=== PATIENT | female | born 1930 | race Hispanic/Latino ===

== ENCOUNTER 2018-06-25 14:10 | Emergency (ER) | payer MEDICARE, OTHER ==
[~2018-06-25] VITALS: Ht 157.5 cm; Wt 62.1 kg
[2018-06-25 15:33] LABS: BASOPHILS % 0.2 % (0.0-1.0); EOSINOPHILS % 0.3 % (0.0-6.0); HEMOGLOBIN 13.5 g/dL (12.0-16.0); LYMPHOCYTES # (AUTO) 1.4 (1.0-3.2); LYMPHOCYTES % 22.1 % (18.0-39.1); MEAN CORPUSCULAR HEMOGLOBIN 32.9 pg (28-32); MEAN CORPUSCULAR HGB CONC 33.8 g/dL (31-35); MEAN CORPUSCULAR VOLUME 97.6 fL (81-99); MONOCYTES # (AUTO) 0.4 (0.2-0.8); MONOCYTES % 6.9 % (4.4-11.3); NEUTROPHILS # (AUTO) 4.3 (2.1-6.9); NEUTROPHILS % 70.3 % (38.7-80.0); PLATELET COUNT 104 x10e3/uL (140-360); RED CELL DISTRIBUTION WIDTH 11.9 % (11.7-14.4)
[2018-06-25 15:40] LABS: INR 0.94; PROTHROMBIN TIME 13.4 seconds (11.9-14.5)
[2018-06-25 15:41] LABS: PARTIAL THROMBOPLASTIN TIME 30.8 seconds (23.8-35.5)
[2018-06-25 15:54] LABS: ALANINE AMINOTRANSFERASE 21 IU/L (0-55); ALBUMIN 4.1 g/dL (3.5-5.0); ALBUMIN/GLOBULIN RATIO 1.3 (0.8-2.0); ALKALINE PHOSPHATASE 59 IU/L (40-150); ANION GAP 16.2 mmol/L (8-16); BLOOD UREA NITROGEN 15 mg/dL (7-26); BUN/CREATININE RATIO 18 (6-25); CALCIUM 9.5 mg/dL (8.4-10.2); CARBON DIOXIDE 24 mmol/L (22-29); CHLORIDE 104 mmol/L (98-107); CREATINE KINASE 67 IU/L (29-168); CREATININE, SERUM 0.83 mg/dL (0.57-1.11); EST GLOMERULAR FILTRATION RATE > 60 ML/MIN (60-); GLUCOSE 97 mg/dL (74-118); MAGNESIUM 2.3 MG/DL (1.3-2.1); POTASSIUM 4.2 mmol/L (3.5-5.1); SODIUM 140 mmol/L (136-145)
[2018-06-25 16:00] LABS: BILIRUBIN,URINE NEGATIVE (NEGATIVE); CLARITY,URINE CLEAR (CLEAR); COLOR,URINE YELLOW (YELLOW); KETONES,URINE NEGATIVE (NEGATIVE); LEUKOCYTE ESTERASE ,URINE 1+ (NEGATIVE); NITRITE,URINE NEGATIVE (NEGATIVE); PROTEIN,URINE DIPSTICK NEGATIVE (NEGATIVE); URINE UROBILINOGEN 0.2 mg/dL (0.2 - 1)
[2018-06-25 16:03] LABS: EPITHELIAL CELLS,URINE MODERATE /LPF; TRANSITIONAL EPI CELLS,URINE MODERATE
[2018-06-25 16:05] LABS: MUCUS,URINE FEW (RARE)
--- NOTE | 2018-06-25 16:48 | Diagnostic Imaging Report ---
EXAMINATION: CHEST SINGLE (PORTABLE) INDICATION: ^upper abd pain ^[id number] ^1550 COMPARISON: None FINDINGS: AP view TUBES and LINES: None. LUNGS: Hyperinflated lungs, likely emphysematous. Biapical scarring. No definite focal consolidation. PLEURA: No pleural effusion or pneumothorax. HEART AND MEDIASTINUM: The cardiomediastinal silhouette is unremarkable. BONES AND SOFT TISSUES: No acute osseous lesion. Soft tissues are unremarkable. UPPER ABDOMEN: No free air under the diaphragm. IMPRESSION: Hyperinflated lungs, likely emphysematous. No definite focal consolidation. Signed by: Dr. Jeremiah Bartlett MD on 06/25/2018 4:44 PM
[2018-06-25] MEDS ORDERED: DIATRIZOATE MEGL/DIATRIZOA SOD 30 ML BTL PO ONE (17:00)
--- NOTE | 2018-06-25 19:05 | NUR ---
received report from uyen bahena. pt awake alert skin w/d resp nonlab. nad noted. awaiting ct results
--- NOTE | 2018-06-25 19:10 | NUR ---
cath sample collected and sent, tolerated well.
[2018-06-25 19:40] LABS: BILIRUBIN,URINE NEGATIVE (NEGATIVE); CLARITY,URINE CLEAR (CLEAR); COLOR,URINE COLORLESS (YELLOW); KETONES,URINE NEGATIVE (NEGATIVE); LEUKOCYTE ESTERASE ,URINE NEGATIVE (NEGATIVE); NITRITE,URINE NEGATIVE (NEGATIVE); PROTEIN,URINE DIPSTICK NEGATIVE (NEGATIVE); URINE UROBILINOGEN 0.2 mg/dL (0.2 - 1)
--- NOTE | 2018-06-25 19:43 | Diagnostic Imaging Report ---
EXAM: CT ABDOMEN AND PELVIS with IV CONTRAST DATE: 06/25/2018 4:29 PM Time stamp on Exam: 1830 hours INDICATION: Diarrhea, abdominal pain, history of diverticulitis COMPARISON: None TECHNIQUE: The abdomen and pelvis were scanned using a multidetector helical scanner. Coronal and sagittal reformations were obtained. Dose modulation, iterative reconstruction, and/or weight based adjustment of the mA/kV was utilized to reduce the radiation dose to as low as reasonably achievable. Routine protocol performed. IV Contrast: 100 cc Isovue 370 Oral Contrast: Gastrografin FINDINGS: LOWER THORAX: Nonspecific 5 mm pulmonary nodule in the right lung base. LIVER: No masses BILIARY: The gallbladder is unremarkable. The common bile duct is dilated to 1 cm. SPLEEN: No masses PANCREAS: Generalized pancreatic atrophy. Mild dilation of the pancreatic duct with more focal dilation of the pancreatic duct in the tail up to 6 mm. ADRENALS: No nodules KIDNEYS: Symmetric perfusion. No enhancing masses. No hydronephrosis. Simple cortical cysts in the left kidney measuring 7 mm and 1.1 cm. Cortical cyst measuring 8 mm inferior pole of the right kidney. GI TRACT: No distention, wall thickening or evidence of obstruction. Surgical clips near the gastroesophageal junction. Normal appendix. VESSELS: Mild atherosclerotic changes of the abdominal aorta and branches without aneurysm. PERITONEUM/RETROPERITONEUM: No free air or fluid LYMPH NODES: No lymphadenopathy REPRODUCTIVE ORGANS: The uterus is not visualized. No adnexal masses. BLADDER: Unremarkable SOFT TISSUES: Unremarkable BONES: No suspicious bone lesions. IMPRESSION: 1. No acute findings to explain patient's symptoms. No evidence of acute diverticulitis, bowel obstruction or appendicitis. 2. Nonspecific mild dilation of the common bile duct to 1 cm with smooth tapered to the ampulla in addition to mild pancreatic duct dilation up to 6 mm in the pancreatic tail. These findings could be age related or related to prior pancreatitis. If there is biliary obstructive pathology and no priors are available for comparison, consider follow-up MRCP. 3. Nonspecific 5 mm pulmonary nodule in the right lung base. If the patient is at high risk for lung cancer, a follow-up CT of the chest without IV contrast in 12 months is recommended, otherwise no follow-up indicated. Signed by: Dr. Genesis Ramirez M.D. on 06/25/2018 7:40 PM
[2018-06-25 19:45] LABS: WBC,URINE (MAN) 0-5 /HPF (0-5)
--- NOTE | 2018-06-25 19:52 | NUR ---
ct results back, awaiting dispo
== END 2018-06-25 20:22 | disposition home or self-care (01) ==
LOC: ER 14:10
DX: R10.12 Left upper quadrant pain (principal); R11.0 Nausea; R19.7 Diarrhea, unspecified; E78.5 Hyperlipidemia, unspecified; Z87.19 Personal history of other diseases of the digestive system
CPT/HCPCS: 36415; 71045; 74177; 80053; 81001; 82550; 82553; 83735; 84484; 85025; 85610; 85730; 87086; 93005; 99284

== ENCOUNTER 2019-03-15 16:31 | Observation (INO) | payer MEDICARE, OTHER ==
[~2019-03-15] VITALS: Ht 149.9 cm; Wt 43.8 kg
--- OUTSIDE RECORDS SUMMARY | 2019-03-15 16:34 | XMS REPORT ---
Author Author [facility] Address Unknown Phone Unavailable Care Team Providers Care Electric Wheelchair Repairer Name Role Phone Bernice BROWN Unavailable Unavailable Problems This patient has no known problems. Allergies, Adverse Reactions, Alerts This patient has no known allergies or adverse reactions. Medications This patient has no known medications. Results Test Description Test Time Test Comments Text Results Atomic Results Result Comments CT ABDOMEN/PELVIS W 2018-06-25 19:29:00 [place] [address] Patient Name: SEAN SHOEMAKER V MR #: [id number] : 1930 Age/Sex: 87/F Req #: [id number] [facility] Physician: Ordered by: DUKE DOMINGUEZ PIPELINES SUPERVISOR Report #: [id number] Location: ER Room/Bed: Procedure: [id number] CT/CT ABDOMEN/PELVIS W Exam Date: 06/25/18 Exam Time: 1826 REPORT STATUS: Signed EXAM: CT ABDOMEN AND PELVIS with IV CONTRAST DATE: 06/25/2018 4:29 PM Time stamp on Exam: 1830 hours INDICATION: Diarrhea, abdominal pain, history of diverticulitis COMPARISON: None TECHNIQUE: The abdomen and pelvis were scanned using a multidetector helical scanner. Coronal and sagittal reformations were obtained. Dose modulation, iterative reconstruction, and/or weight based adjustment of the mA/kV was utilized to reduce the radiation dose to as low as reasonably achievable. Routine protocol performed. IV Contrast: 100 cc Isovue 370 Oral Contrast: Gastrografin FINDINGS: LOWER THORAX: Nonspecific 5 mm pulmonary nodule in the right lung base. LIVER: No masses BILIARY: The gallbladder is unremarkable. The common bile duct is dilated to 1 cm. SPLEEN: No masses PANCREAS: Generalized pancreatic atrophy. Mild dilation of the pancreatic duct with more focal dilation of the pancreatic duct in the tail up to 6 mm. ADRENALS: No nodules KIDNEYS: Symmetric perfusion. No enhancing masses. No hydronephrosis. Simple cortical cysts in the left kidney measuring 7 mm and 1.1 cm. Cortical cyst measuring 8 mm inferior pole of the right kidney. GI TRACT: No distention, wall thickening or evidence of obstruction. Surgical clips near the gastroesophageal junction. Normal appendix. VESSELS: Mild atherosclerotic changes of the abdominal aorta and branches without aneurysm. PERITONEUM/RETROPERITONEUM: No free air or fluid LYMPH NODES: No lymphadenopathy REPRODUCTIVE ORGANS: The uterus is not visualized. No adnexal masses. BLADDER: Unremarkable SOFT TISSUES: Unremarkable BONES: No suspicious bone lesions. IMPRESSION: 1. No acute findings to explain patient's symptoms. No evidence of acute diverticulitis, bowel obstruction or appendicitis. 2. Nonspecific mild dilation of the common bile duct to 1 cm with smooth tapered to the ampulla in addition to mild pancreatic duct dilation up to 6 mm in the pancreatic tail. These findings could be age related or related to prior pancreatitis. If there is biliary obstructive pathology and no priors are available for comparison, consider follow-up MRCP. 3. Nonspecific 5 mm pulmonary nodule in the right lung base. If the patient is at high risk for lung cancer, a follow-up CT of the chest without IV contrast in 12 months is recommended, otherwise no follow-up indicated. Signed by: Dr. Terese Ramirez M.D. on 06/25/2018 7:40 PM Dictated By: TERESE RAMIREZ MD 39 Transcribed By: YOVANA on 06/25/181939 COPY TO: DUKE MCCULLOUGH NP CHEST SINGLE (PORTABLE) 2018-06-25 16:43:00 [place] [address] Patient Name: SEAN SHOEMAKER V MR #: [id number] : 1930 Age/Sex: 87/F Req #: [id number] [facility] Physician: Ordered by: DUKE DOMINGUEZ NP Report #: [id number] Location: ER Room/Bed: Procedure: [id number] DX/CHEST SINGLE (PORTABLE) Exam Date: 06/25/18 Exam Time: 1550 REPORT STATUS: Signed EXAMINATION: CHEST SINGLE (PORTABLE) INDICATION: upper abd pain [id number] COMPARISON: None FINDINGS: AP view TUBES and LINES: None. LUNGS: Hyperinflated lungs, likely emphysematous. Biapical scarring. No definite focal consolidation. PLEURA: No pleural effusion or pneumothorax. HEART AND MEDIASTINUM: The cardiomediastinal silhouette is unremarkable. BONES AND SOFT TISSUES: No acute osseous lesion. Soft tissues are unremarkable. UPPER ABDOMEN: No free air under the diaphragm. IMPRESSION: Hyperinflated lungs, likely emphysematous. No definite focal consolidation. Signed by: Dr. Jeremiah Toney MD on 06/25/2018 4:44 PM Dictated By: JEREMIAH TONEY MD 43 Transcribed By: YOVANA on 06/25/181643 COPY TO: DUKE DOMINGUEZ PIPELINES SUPERVISOR
[2019-03-15 18:05] LABS: BASOPHILS % 0.1 % (0.0-1.0); EOSINOPHILS % 0.1 % (0.0-6.0); HEMATOCRIT 43.5 % (34.2-44.1); HEMOGLOBIN 14.7 g/dL (12.0-16.0); LYMPHOCYTES # (AUTO) 1.4 (1.0-3.2); LYMPHOCYTES % 16.9 % (18.0-39.1); MEAN CORPUSCULAR HEMOGLOBIN 32.8 pg (28-32); MEAN CORPUSCULAR HGB CONC 33.8 g/dL (31-35); MEAN CORPUSCULAR VOLUME 97.1 fL (81-99); MONOCYTES # (AUTO) 0.5 (0.2-0.8); MONOCYTES % 5.9 % (4.4-11.3); NEUTROPHILS # (AUTO) 6.4 (2.1-6.9); NEUTROPHILS % 76.8 % (38.7-80.0); PLATELET COUNT 133 x10e3/uL (140-360); RED BLOOD COUNT 4.48 x10e6/uL (3.6-5.1); RED CELL DISTRIBUTION WIDTH 12.3 % (11.7-14.4)
[2019-03-15 18:30] LABS: ALANINE AMINOTRANSFERASE 26 IU/L (0-55); ALBUMIN 3.9 g/dL (3.5-5.0); ALBUMIN/GLOBULIN RATIO 1.3 (0.8-2.0); ALKALINE PHOSPHATASE 61 IU/L (40-150); ANION GAP 15.5 mmol/L (8-16); BLOOD UREA NITROGEN 20 mg/dL (7-26); BUN/CREATININE RATIO 23 (6-25); CALCIUM 9.7 mg/dL (8.4-10.2); CARBON DIOXIDE 28 mmol/L (22-29); CHLORIDE 104 mmol/L (98-107); CREATINE KINASE 54 IU/L (29-168); CREATININE, SERUM 0.86 mg/dL (0.57-1.11); EST GLOMERULAR FILTRATION RATE > 60 ML/MIN (60-); GLUCOSE 117 mg/dL (74-118); LIPASE 24 U/L (8-78); MAGNESIUM 2.2 MG/DL (1.3-2.1); POTASSIUM 4.5 mmol/L (3.5-5.1); SODIUM 143 mmol/L (136-145)
[2019-03-15 18:43] LABS: INR 1.03; PARTIAL THROMBOPLASTIN TIME 27.1 seconds (23.8-35.5)
[2019-03-15] MEDS ORDERED: SODIUM CHLORIDE 0.9% 1000ML 1,000 ML ONE (18:51)
--- NOTE | 2019-03-15 18:53 | Diagnostic Imaging Report ---
PELVIS X-RAY - 1 VIEW HISTORY: ^fall ^[id number] ^1750 ^Y COMPARISON: CT abdomen and pelvis 06/25/2018 FINDINGS: Bones: No acute displaced fracture. Osseous alignment is within normal limits. Joints: Degenerative changes of the sacroiliac joints and lower lumbar spine. Soft tissues: The soft tissues appear unremarkable. IMPRESSION: No acute radiographic abnormality. Signed by: Dr. Krysta Thompson M.D. on 03/15/2019 6:49 PM
--- NOTE | 2019-03-15 18:55 | Diagnostic Imaging Report ---
RIGHT FOOT X-RAY - 3 VIEWS HISTORY: ^fall ^[id number] ^1750 ^Y COMPARISON: None available. FINDINGS: Bones: No acute displaced fracture. Mild linear lucency within the medial aspect of the base of the right second metatarsal. Osseous alignment is within normal limits. Joints: The joint spaces are well-maintained. Calcaneal enthesopathy. Soft tissues: The soft tissues appear unremarkable. IMPRESSION: Indeterminate cortical lucency at the base of the right second metatarsal may reflect an age indeterminate incomplete fracture. Otherwise, no displaced fractures. Signed by: Dr. Krysta Thompson M.D. on 03/15/2019 6:51 PM
--- NOTE | 2019-03-15 18:55 | Diagnostic Imaging Report ---
EXAMINATION: CHEST SINGLE (NOT PORTABLE) INDICATION: ^ERMD ORDER ^[id number] ^1750 ^Y COMPARISON: Chest radiograph 06/25/2018 FINDINGS: AP view TUBES and LINES: None. LUNGS: Hyperinflated lungs. Mild scarring in the right middle lobe is unchanged. There is no evidence of pneumonia or pulmonary edema. PLEURA: No pleural effusion or pneumothorax. HEART AND MEDIASTINUM: The cardiomediastinal silhouette is unremarkable.. BONES AND SOFT TISSUES: No acute osseous lesion. Soft tissues are unremarkable. UPPER ABDOMEN: No free air under the diaphragm. IMPRESSION: No acute thoracic abnormality. Signed by: Dr. Krysta Thompson M.D. on 03/15/2019 6:52 PM
[2019-03-15 19:54] LABS: BILIRUBIN,URINE NEGATIVE (NEGATIVE); CLARITY,URINE CLEAR (CLEAR); COLOR,URINE YELLOW (YELLOW); KETONES,URINE NEGATIVE (NEGATIVE); LEUKOCYTE ESTERASE ,URINE NEGATIVE (NEGATIVE); NITRITE,URINE NEGATIVE (NEGATIVE); PROTEIN,URINE DIPSTICK NEGATIVE (NEGATIVE); URINE UROBILINOGEN 0.2 mg/dL (0.2 - 1)
[2019-03-15 20:09] LABS: BACTERIA,URINE FEW /HPF; EPITHELIAL CELLS,URINE RARE /LPF; RBC,URINE 0-5 /HPF (0-5); WBC,URINE (MAN) 0-5 /HPF (0-5)
[2019-03-15 20:10] LABS: MUCUS,URINE MODERATE (RARE)
--- NOTE | 2019-03-15 22:00 | NUR ---
PT ARRIVED BY STRETCHER TO ROOM 108. PT IS AAOX3, RR EVEN AND NON-LABORED, ON ROOM AIR. NO S/SX OF DISTRESS NOTED. ORIENTED PATIENT AND FAMILY TO HOSPITAL ROOM, CALL LIGHT, PHONE, BED CONTROLS AND LIGHTS. LEFT PT LAYING SEMI FOWLERS IN BED, BED IN LOW LOCKED POSITION, SIDE RAILS UPX2, CALL LIGHT AND PHONE WITHIN REACH.
--- NOTE | 2019-03-15 22:22 | Diagnostic Imaging Report ---
History: Fall. Comparison studies: None Technique: Axial images were obtained through the cervical region.. Coronal and sagittal images reconstructed from the axial data. Dose modulation, iterative reconstruction, and/or weight based adjustment of the mA/kV was utilized to reduce the radiation dose to as low as reasonably achievable. Intravenous contrast: None Findings: Fractures: None. Soft tissue injuries: None. Atlantoaxial articulation: Intact. Alignment: Loss of normal cervical lordosis is either positional or due to muscle spasm. No scoliosis. 2 mm grade 1 retrolisthesis at C4-C5, is degenerative. Cervicomedullary junction: No abnormalities. The foramen magnum is patent. Soft tissues: No abnormalities. Vertebrae: Diffuse osseous demineralization. No fractures, infection or neoplasm. Degenerative changes: C3-C4: Moderate degenerative disc disease. Mild left foraminal stenosis due to facet and uncovertebral arthrosis. C4-C5: Moderate degenerative disc disease. Mild right foraminal stenosis due to facet and uncovertebral arthrosis. C5-C6: Moderate degenerative disc disease. Moderate right and mild left foraminal stenosis due to facet and uncovertebral arthrosis. C6-C7: Mild degenerative disc disease. Mild right and moderate left foraminal stenosis due to uncovertebral arthrosis. Incidental finding: Biapical lung scarring. IMPRESSION: 1. No acute cervical spine fracture or dislocation. Loss of normal cervical lordosis is either positional or due to muscle spasm. 2. Ligament, spinal cord and or vascular abnormalities cannot be excluded on the basis of this examination. 3. Multilevel cervical spondylosis without canal stenosis. 4. Multilevel foraminal stenosis, particularly mild left at C3-C4, mild right at C4-C5, moderate right and mild left at C5-C6, mild right and moderate left at C6-C7. Signed by: Dr. Ariadna Barr M.D. on 03/15/2019 10:19 PM
[2019-03-15 22:23] VITALS: BP 145/67
--- NOTE | 2019-03-15 22:27 | Diagnostic Imaging Report ---
EXAMINATION: Head CT without contrast. HISTORY:Fall. COMPARISON:None. TECHNIQUE: Multidetector axial images were obtained from the foramen magnum to the vertex without contrast. The images were reconstructed using brain and bone algorithms. Thin section brain images were reformatted into coronal and sagittal planes. Dose modulation, iterative reconstruction, and/or weight based adjustment of the mA/kV was utilized to reduce the radiation dose to as low as reasonably achievable. Intravenous contrast: None IMAGE QUALITY: Acceptable. FINDINGS: Skull/scalp: No lytic or blastic. lesions. No surgical changes. Parenchyma: Nonspecific few, scattered supratentorial white matter hypodensity are likely related to small vessel ischemic changes. Multifocal scattered punctate dystrophic calcification without surrounding edema, particularly in bilateral temporal lobe, right occipital lobe and left superior frontal gyrus represents equally of prior infection/inflammation or trauma. No acute hemorrhage, mass or acute major vascular territorial infarct. Arteries: No density suggestive of thrombosis. Mild atherosclerotic calcification in bilateral carotid siphon. Dural sinuses: No abnormal density suggestive of thrombosis. Ventricles: Mild compensated dilatation due to volume loss. No hydrocephalus. Extra-axial spaces: No abnormal density. Brain volume: Generalized age-related cerebral volume loss. Craniocervical junction: No mass, Chiari malformation, or basilar invagination. Sella: No mass. Paranasal/mastoid sinuses: Imaged portions unremarkable. IMPRESSION: 1. No acute intracranial abnormality. 2. Mild supratentorial white matter microvascular ischemic changes. 3. Generalized age-related cerebral volume loss. 4. Few, scattered punctate dystrophic calcification possibly represents sequel of prior infection/inflammation or trauma. Signed by: Dr. Ariadna Barr M.D. on 03/15/2019 10:24 PM
[2019-03-15 22:30] VITALS: BP 145/67
[2019-03-15] MEDS ORDERED: ALENDRONATE SOD70 MG PO (23:42)
[2019-03-15] MEDS ORDERED: ATORVASTATIN CA20 MG PO (23:42)
[2019-03-15] MEDS ORDERED: ZOLOFT50 MG PO (23:42)
[2019-03-15] MEDS ORDERED: METOPROLOL-HCT1 EAC1 PO (23:42)
[2019-03-16] VITALS (7 sets, daily range): BP systolic 118–135; BP diastolic 56–64
[2019-03-16] MEDS: ACETAMINOPHEN 325 MG TAB PO PRN (06:10)
--- NOTE | 2019-03-16 07:00 | NUR ---
bedside shift report received pt in stable condition denies pain at this time, call light in reach will continue to monitor
[2019-03-16 07:15] LABS: CREATINE KINASE MB 1.6 ng/mL (0-5.0)
--- NOTE | 2019-03-16 10:11 | NUR ---
H&P cc: fall HPI: 88yoF, PCP , had a fall with resulting toe fracture on left foot; Pt denies dizziness at home. States that she tripped. PMH: osteoporosis, HLD, HTN, mood d/o PShx: none Allergies; see emr fH/SH; ; no etoh/cigs meds; see MAR ROS: no f/c/s/N/V/D/THOMPSON/vision changes/dizziness/skin rash/back pain v/s; revd PE: nad anicteric ns1s2 mod bs soft nt nd no e; left foot in boot/dressing skin dry n.affect labs/med; revd A/P: 88yoF Elderly fall Right 2nd metatarsal fx Cervical stenosis Osteoporosis HLD Mood d/o HTN PLAN oscal and Bisphosphonate; splint PT consult multivitamin restart home med scd Vincent Trevino MD, PhD.
[2019-03-16] MEDS: HYDROCHLOROTHIAZIDE 25 MG TAB PO SCH (11:00)
[2019-03-16] MEDS: METOPROLOL TARTRATE 50 MG TAB PO SCH (11:00)
[2019-03-16 13:47] LABS: CREATINE KINASE MB 1.4 ng/mL (0-5.0)
--- NOTE | 2019-03-16 14:00 | NUR ---
spoke with ER, re: a splint for pt fx toe, informed pt only needed a post op shoe, pt has shoe on
[2019-03-16] MEDS: OYST-CAL-D 500MG TABLET PO SCH ×2 (15:00→21:08)
--- NOTE | 2019-03-16 19:14 | NUR ---
WALKING ROUNDS PERFORMED, RECEIVED PT LAYING SEMI FOWLERS IN BED, AAOX3, RR EVEN AND NON-LABORED, ON ROOM AIR. NO S/SX OF DISTRESS NOTED. WALKING SHOE TO (R) FOOT. LEFT PT LAYING SEMI FOWLERS IN BED, BED IN LOW LOCKED POSITION, SIDE RAILS UPX2, CALL LIGHT AND PHONE WITHIN REACH.
[2019-03-16] MEDS ORDERED: ATORVASTATIN 20 MG TAB PO SCH (21:00)
[2019-03-16] MEDS ORDERED: SERTRALINE HCL 50 MG TAB PO SCH (21:00)
[2019-03-17] VITALS: BP 136/66
[2019-03-17 04:00] VITALS: BP 130/61
[2019-03-17] MEDS ORDERED: OS-CAL 500+D T1 EACH PO (06:56)
[2019-03-17] MEDS ORDERED: ACETAMINOPHEN325 M1 PO (06:56)
[2019-03-17] MEDS ORDERED: ESIDRIX25 MG PO (06:56)
[2019-03-17] MEDS ORDERED: Multivitamins/Minerals PO (06:56)
--- NOTE | 2019-03-17 06:58 | NUR ---
D/C summary Principal dx; Elderly fall Right 2nd metatarsal fx Cervical stenosis Secondary Dx: Osteoporosis HLD Mood d/o HTN PLAN oscal and Bisphosphonate; splint PT consult multivitamin restart home med scd d/c home with PT f/u PCP 1 week and 1 week stable d/c>35mins Vincent Trevino MD, PhD.
--- NOTE | 2019-03-17 07:13 | NUR ---
Received patient lying in bed with eyes open. Respiration even and unlabored without SOB. Call light in reach. family member at bedside.
[2019-03-17] MEDS: ACETAMINOPHEN 325 MG TAB PO PRN (07:43)
[2019-03-17] MEDS: HYDROCHLOROTHIAZIDE 25 MG TAB PO SCH (08:09)
[2019-03-17] MEDS: METOPROLOL TARTRATE 50 MG TAB PO SCH (08:09)
[2019-03-17] MEDS: OYST-CAL-D 500MG TABLET PO SCH (08:10)
[2019-03-17 08:22] VITALS: BP 144/65
[2019-03-17 08:56] VITALS: BP 144/65
[2019-03-17] MEDS ORDERED: MULTIVITAMINS/MINERALS TAB PO SCH (09:00)
[2019-03-17 09:54] VITALS: BP 123/60
--- NOTE | 2019-03-17 11:45 | NUR ---
ORDERS FOR HOME HEALTH, P.TIona MARTINEZ CM SPOKE WITH PT'S DAUGHTER LILLY KOLB WHO IS IN THE ROOM WITH THE PT SHE STATES SHE DOES NOT WANT HOME HEALTH CARE FOR HER MOTHER STATES THAT SHE WILL TAKE CARE OF HER AND WALKER HER REQUESTING WALKER INSTRUCTED PT'S DTR THAT HOSPITAL CAN PROVIDE PT WITH A WALKER AND BILL HER INSURANCE BUT IF INSURANCE REFUSES PMT SHE WILL BE RESPONSIBLE FOR THE BILL (120.00) ALSO GIVEN THE OPTION TO [facility] [employer] AND [facility] (35.[facility]) SHE AGREES TO BUY A WALKER AT [facility]
--- NOTE | 2019-03-17 11:48 | NUR ---
IV line to right FA discontinued, catheter tip intact, no bleeding noted.
--- NOTE | 2019-03-17 11:55 | NUR ---
Patient is to be D/C to home today. Transported via wheelchair to private vehicle with belongings carried by daughter.
[2019-03-20] MEDS ORDERED: ALENDRONATE SODIUM 70 MG TAB PO SCH (06:00)
== END 2019-03-17 11:55 | disposition home or self-care (01) ==
LOC: ER 16:31 → ERHOLD 21:49 → MED/SURG 22:03
PROVIDERS: ADMIT Internal Medicine; ATTEND Internal Medicine
DX: S92.324A Nondisplaced fracture of second metatarsal bone, right foot, initial encounter for closed fracture (principal); R53.1 Weakness; E78.00 Pure hypercholesterolemia, unspecified; K57.90 Diverticulosis of intestine, part unspecified, without perforation or abscess without bleeding; M81.0 Age-related osteoporosis without current pathological fracture; Z88.0 Allergy status to penicillin; Z82.49 Family history of ischemic heart disease and other diseases of the circulatory system; W01.0XXA Fall on same level from slipping, tripping and stumbling without subsequent striking against object, initial encounter; Z91.81 History of falling; M48.02 Spinal stenosis, cervical region; E78.5 Hyperlipidemia, unspecified; F39 Unspecified mood [affective] disorder; I10 Essential (primary) hypertension
CPT/HCPCS: 36415 ×2; 70450; 71045; 72125; 72170; 73630; 80053; 81001; 82550 ×2; 82553 ×2; 83690; 83735; 83880; 84484 ×2; 85025; 85610; 85730; 93005; 97116; 97162; 99284; G0378 ×3; J7030

== ENCOUNTER 2019-08-29 09:02 | Inpatient (IN) | payer MEDICARE, OTHER ==
[2019-08-29] VITALS (16 sets, daily range): BP systolic 122–203; BP diastolic 47–76
[~2019-08-29] VITALS: Ht 154.9 cm; Wt 46.3 kg
[2019-08-29 09:27] LABS: BASOPHILS % 0.2 % (0.0-1.0); EOSINOPHILS % 0.2 % (0.0-6.0); HEMATOCRIT 37.9 % (34.2-44.1); HEMOGLOBIN 12.7 g/dL (12.0-16.0); LYMPHOCYTES # (AUTO) 1.3 (1.0-3.2); LYMPHOCYTES % 27.3 % (18.0-39.1); MEAN CORPUSCULAR HEMOGLOBIN 33.3 pg (28-32); MEAN CORPUSCULAR HGB CONC 33.5 g/dL (31-35); MEAN CORPUSCULAR VOLUME 99.5 fL (81-99); MONOCYTES # (AUTO) 0.5 (0.2-0.8); NEUTROPHILS # (AUTO) 2.8 (2.1-6.9); NEUTROPHILS % 62.1 % (38.7-80.0); PLATELET COUNT 103 x10e3/uL (140-360); RED BLOOD COUNT 3.81 x10e6/uL (3.6-5.1); RED CELL DISTRIBUTION WIDTH 13.6 % (11.7-14.4)
[2019-08-29 09:35] LABS: INR 1.05; PROTHROMBIN TIME 14.4 seconds (11.9-14.5)
[2019-08-29 09:36] LABS: PARTIAL THROMBOPLASTIN TIME 31.5 seconds (23.8-35.5)
[2019-08-29 09:43] LABS: ALANINE AMINOTRANSFERASE 57 IU/L (0-55); ALBUMIN 3.9 g/dL (3.5-5.0); ALBUMIN/GLOBULIN RATIO 1.6 (0.8-2.0); ALKALINE PHOSPHATASE 74 IU/L (40-150); BLOOD UREA NITROGEN 22 mg/dL (7-26); BUN/CREATININE RATIO 28 (6-25); CALCIUM 9.3 mg/dL (8.4-10.2); CARBON DIOXIDE 22 mmol/L (22-29); CHLORIDE 109 mmol/L (98-107); CREATINE KINASE 82 IU/L (29-168); CREATININE, SERUM 0.79 mg/dL (0.57-1.11); EST GLOMERULAR FILTRATION RATE > 60 ML/MIN (60-); GLUCOSE 83 mg/dL (74-118); SODIUM 142 mmol/L (136-145)
[2019-08-29] MEDS ORDERED: ONDANSETRON HCL INJ 2MG/ML 2ML 2 MG/ML VIAL IV PRN (10:15)
[2019-08-29] MEDS ORDERED: SODIUM CHLORIDE FLUSH 10 ML SYR INJ PRN (10:15)
--- NOTE | 2019-08-29 10:23 | Diagnostic Imaging Report ---
EXAM: CT Abdomen and Pelvis WITHOUT intravenous contrast INDICATION: Abdominal pain, hypertension COMPARISON: None. TECHNIQUE: Abdomen and pelvis were scanned utilizing a multidetector helical scanner from the lung base to the pubic symphysis without administration of IV contrast. Coronal and sagittal reformations were obtained. IV CONTRAST: None ORAL CONTRAST: Water COMPLICATIONS: None RADIATION DOSE: Total DLP: 163 mGy*cm Dose modulation, iterative reconstruction, and/or weight based adjustment of the mA/kV was utilized to reduce the radiation dose to as low as reasonably achievable. FINDINGS: LOWER THORAX: Bibasilar dependent subsegmental atelectasis. Mild pulmonary interstitial edema. Bilateral pleural effusions right greater than left. HEPATOBILIARY: No focal hepatic lesions. No biliary ductal dilatation. The gallbladder appears unremarkable. SPLEEN: No splenomegaly. PANCREAS: No focal masses or ductal dilatation. ADRENALS: No adrenal nodules. KIDNEYS/URETERS: No hydronephrosis, stones, or solid mass lesions. PELVIC ORGANS/BLADDER: Status post hysterectomy. PERITONEUM / RETROPERITONEUM: No free air or fluid. LYMPH NODES: No lymphadenopathy. VESSELS: Moderate atherosclerotic calcifications of the nonaneurysmal abdominal aorta and major branches. GI TRACT: Prominent diverticulosis. No CT evidence of diverticulitis. No abnormal bowel thickening. No bowel obstruction. Normal appendix. BONES AND SOFT TISSUES: No acute osseous injury. No suspicious lytic or blastic lesions. Mild diffuse osteopenia. IMPRESSION: No acute findings in the abdomen or pelvis. Mild pulmonary interstitial edema and bilateral pleural effusions right greater than left. Signed by: Liana Mayo MD on 08/29/2019 10:20 AM
--- NOTE | 2019-08-29 10:30 | Diagnostic Imaging Report ---
Examination: CT head without contrast Clinical Indication: Hypertension. Bradycardia. Technique: Transaxial noncontrast images from the skull base through the vertex were obtained. Sagittal and coronal reformatted images were done. Dose modulation, iterative reconstruction, and/or weight based adjustment of the mA/kV was utilized to reduce the radiation dose to as low as reasonably achievable. Comparison: Head CT dated 03/15/2019. Findings: Scalp: No abnormalities. Bones: Intact. No fractures. No blastic or lytic lesions. Brain sulci: Generalized volume loss for patient's age. Ventricles: No hydrocephalus. Extra-axial space: No abnormalities. Parenchyma: Again demonstrated are patchy are confluent areas of low-attenuation within subcortical and periventricular white matter, nonspecific, but could represent microvascular ischemic disease. There are several dystrophic calcifications again demonstrated in the supratentorial white matter, are most probably related to prior infectious or inflammatory process. No masses, hemorrhage, or acute or chronic cortical based vascular insults. Suprasellar region: No abnormalities. Craniocervical junction: The foramen magnum is patent. No Chiari one malformation. Incidental findings: Atherosclerotic calcification of the cavernous and supraclinoid internal carotid and V4 segments of the bilateral vertebral arteries. Impression: 1. No new or acute intracranial abnormality when compared to prior CT performed March 15, 2019. 2. Unchanged chronic microvascular ischemic change and generalized volume loss. 3. Unchanged sequela of prior infectious or inflammatory process in the supratentorial brain. Signed by: Dr. Ayla Morales M.D. on 08/29/2019 10:28 AM
--- NOTE | 2019-08-29 12:51 | NUR ---
Brief Cardiology consult note. Full note to follow. Patient was found to have severe bradycardia. She denies dizziness or syncope. Her BP was noted to be elevated with HR in 30's. She is on metoprolol at home. Plan: - She was noted to have acute liver injury with elevated hepatic enzymes. Metoprolol is metabolized through the liver. BP is stable and she is relatively asymptomatic. First line treatment if she becomes symptomatic would be to give IV glucagon. IV calcium can be given as well. If she becomes unstable can start IV dopamine, dobutamine, or epinephrine. A temporary venous pacemaker can also be placed.
[2019-08-29] MEDS ORDERED: FENTANYL CITRATE/PF 100MCG/2 ML INJ ONE (13:43)
[2019-08-29] MEDS ORDERED: MIDAZOLAM HCL 2 MG/2 ML VIAL ONE (13:43)
[2019-08-29] MEDS ORDERED: SODIUM CHLORIDE 0.9% 500ML 500 ML ONE (13:44)
[2019-08-29] MEDS ORDERED: LIDOCAINE HCL 2% LOCAL 20 ML VIAL ONE (13:44)
[2019-08-29] MEDS ORDERED: SODIUM CHLORIDE 0.9% 1000ML 1,000 ML ONE (13:44)
[2019-08-29] MEDS ORDERED: HYDRALAZINE HCL 20 MG/ML VIAL IV PRN (15:00)
[2019-08-29 19:04] LABS: CREATINE KINASE MB 2.5 ng/mL (0-5.0)
[2019-08-29] MEDS: MORPHINE SULFATE 2 MG/ML SYR 1ML IV PRN (21:00)
--- NOTE | 2019-08-29 21:23 | Consultation ---
DATE OF CONSULTATION: Cardiology Consultation REASON FOR CONSULTATION: Bradycardia. HISTORY OF PRESENT ILLNESS: This is an 89-year-old woman with a history of hypertension, on metoprolol and hydrochlorothiazide, who presented as an outpatient for endoscopy procedure due to fatigue, lethargy, and abdominal discomfort. Upon arrival, she was noted to be bradycardic and sent to the emergency department. Speaking with the patient's daughter, she has been feeling unwell, severe fatigue, nausea with poor oral intake. She denies any syncopal events or significant dizziness. She was found to have a heart rate of 38 with significantly elevated blood pressures. REVIEW OF SYSTEMS: A 12-point review of systems was conducted, is negative except as stated above in the HPI. PAST MEDICAL HISTORY: Hypertension, hyperlipidemia, depression. PAST SURGICAL HISTORY: None recent. PAST FAMILY HISTORY: Noncontributory to current illness. ALLERGIES: PENICILLIN. MEDICATIONS: See medication reconciliation form. SOCIAL HISTORY: No illicit drugs, alcohol, or tobacco use. OBJECTIVE: VITAL SIGNS: Temperature is 97.5, heart rate is 36, respiratory rate is 19, blood pressure is 123/60, oxygen saturation is 93 on room air. GENERAL: Elderly woman, in no apparent distress. Alert and oriented x3. HEENT: Head is normocephalic, atraumatic. Eyes, extraocular movements are intact. Conjunctivae are clear. NECK: No JVD. No bruits. CARDIOVASCULAR: She is bradycardic. Regular rhythm. LUNGS: Diminished breath sounds at bases. ABDOMEN: Soft, nontender, nondistended. EXTREMITIES: Trace edema. LABORATORY DATA: Reviewed shows elevated liver function test with an AST of 75, and ALT of 57. Negative troponin. Creatinine is 0.79, potassium is 4. A 12-lead electrocardiogram showed complete heart block with junctional escape rhythm. IMPRESSION: 1. Complete heart block. 2. Acute liver injury. 3. Nausea with right upper quadrant pain. 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 5. Hypertension. RECOMMENDATIONS: The patient will be taken for temporary venous pacemaker. If required, may need IV glucagon or calcium channel blockers. She is currently hypertensive. However, she developed hypotension. May need dopamine and/or epinephrine infusion. Continue treatment of her right upper quadrant pain and acute liver injury per primary team's. Likely, we will need Gastroenterology consultation. Discontinue statin and beta blockers. Avoid all other AV justine blockers. The patient will be monitored in the intensive care unit. DO JERRICA Garcia/EFFIE /[id number]
[2019-08-30] VITALS (18 sets, daily range): BP systolic 121–163; BP diastolic 46–86
[2019-08-30 01:16] LABS: CREATINE KINASE MB 2.2 ng/mL (0-5.0)
[2019-08-30] MEDS: PANTOPRAZOLE 40 MG 10ML VIAL IV SCH ×3 (03:32→21:19)
[2019-08-30] MEDS: MORPHINE SULFATE 2 MG/ML SYR 1ML IV PRN ×2 (07:20→15:31)
[2019-08-30] MEDS ORDERED: HYDRALAZINE HCL 20 MG/ML VIAL IV PRN (11:15)
[2019-08-30] MEDS ORDERED: ACETAMINOPHEN 325 MG TAB PO PRN (11:15)
--- NOTE | 2019-08-30 15:41 | NUR ---
Nutrition Screen Note RD Recommendation for Physician: Liberalize diet to Regular to promote Po intake. Plan of Care: RD following monitor for diet tolerance and adequacy Nutrition reason for involvement: Nutrition Risk Trigger - - MST Primary Diagnose(s): Essential hypertension Ht:59 in Wt:106lb BMI:21.46 kg/m2 IBW:95lb RD Assessment:(08/30/2019): Initial encounter with patient. Diet HX: Pt has no known food allergies. Medications : MAR reviewed. Biochemical data reviewed. Pt is K[place] Speaking and relatives at bedside translated. 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 Pt has had some wt loss over the past year of close to 20 pounds one family member estimates, but not certain. Pt wears loose fitting dentures, but denies any difficulty chewing or swallowing. Nausea has improved. Family reports Ht at 59" No commercial beverages desired. Current Diet: Cardiac diet Malnutrition Evaluation (08/30/2019) The patient does not meet criteria for a specified degree of malnutrition at this time. Will re-evaluate at follow-up as appropriate. Diet Education Needs Assessment: Diet education not indicated. Diet Adequacy: Not meeting calorie needs, Not meeting protein needs Tolerance: Tolerating PO Nutrition Care Level: Low
[2019-08-30] MEDS ORDERED: ATORVASTATIN 20 MG TAB PO SCH (21:00)
[2019-08-30] MEDS: SERTRALINE HCL 50 MG TAB PO SCH (21:19)
[2019-08-31] VITALS (17 sets, daily range): BP systolic 134–174; BP diastolic 47–66
[2019-08-31] MEDS: MORPHINE SULFATE 2 MG/ML SYR 1ML IV PRN ×3 (05:12→20:03)
[2019-08-31 05:18] LABS: BASOPHILS % 0.2 % (0.0-1.0); EOSINOPHILS # (AUTO) 0.1 (0.0-0.4); EOSINOPHILS % 1.1 % (0.0-6.0); HEMATOCRIT 40.5 % (34.2-44.1); HEMOGLOBIN 13.5 g/dL (12.0-16.0); LYMPHOCYTES % 17.2 % (18.0-39.1); MEAN CORPUSCULAR HEMOGLOBIN 33.2 pg (28-32); MEAN CORPUSCULAR HGB CONC 33.3 g/dL (31-35); MEAN CORPUSCULAR VOLUME 99.5 fL (81-99); MONOCYTES # (AUTO) 0.5 (0.2-0.8); NEUTROPHILS % 72.1 % (38.7-80.0); PLATELET COUNT 87 x10e3/uL (140-360); RED BLOOD COUNT 4.07 x10e6/uL (3.6-5.1); RED CELL DISTRIBUTION WIDTH 13.5 % (11.7-14.4)
[2019-08-31 05:32] LABS: PLATELET ESTIMATE MODERATELY DECREASED
[2019-08-31 05:51] LABS: ALANINE AMINOTRANSFERASE 38 IU/L (0-55); ALBUMIN 3.4 g/dL (3.5-5.0); ALKALINE PHOSPHATASE 73 IU/L (40-150); ANION GAP 11.3 mmol/L (8-16); BILIRUBIN,DIRECT 0.4 mg/dL (0.0-0.5); BLOOD UREA NITROGEN 24 mg/dL (7-26); BUN/CREATININE RATIO 30 (6-25); CALCIUM 8.9 mg/dL (8.4-10.2); CARBON DIOXIDE 26 mmol/L (22-29); CHLORIDE 107 mmol/L (98-107); CREATININE, SERUM 0.81 mg/dL (0.57-1.11); EST GLOMERULAR FILTRATION RATE > 60 ML/MIN (60-); GLUCOSE 92 mg/dL (74-118); LIPASE 30 U/L (8-78); POTASSIUM 4.3 mmol/L (3.5-5.1); SODIUM 140 mmol/L (136-145)
[2019-08-31 06:11] LABS: THYROID STIMULATING HORMONE 2.416 uIU/mL (0.350-4.940)
[2019-08-31] MEDS: PANTOPRAZOLE 40 MG 10ML VIAL IV SCH ×2 (08:59→20:03)
--- NOTE | 2019-08-31 13:49 | Operative Report ---
DATE OF PROCEDURE: SURGEON: Matthew Guthrie DO PROCEDURE PERFORMED: Placement of a temporary venous pacemaker into the right ventricle. PREPROCEDURE DIAGNOSIS: Complete heart block. POSTPROCEDURE DIAGNOSIS: Complete heart block. ESTIMATED BLOOD LOSS: Less than 10 mL. SPECIMENS REMOVED: None. PROCEDURE IN DETAIL: After informed consent was obtained, the patient was brought to the cardiac catheterization laboratory in a fasting and nonsedated state. Bilateral groins were prepped and draped in the usual sterile fashion. A 2% lidocaine was infiltrated over the right anterior groin for local anesthesia. Venous access was obtained and I placed a 6-Czech sheath. Next, using a 5-Czech balloon tipped catheter, this was advanced under fluoroscopy into the right ventricle and proper thresholds and capture was confirmed, and she was set had a settings of 60 beats per minute, 5 mA on our output, sensitivity at 3. Matthew Guthrie DO BM/MODL /[id number]
--- NOTE | 2019-08-31 14:04 | Progress Note ---
DATE: Cardiology Progress Note SUBJECTIVE: The patient feeling better. Denies any chest pain or shortness of breath. OBJECTIVE: VITAL SIGNS: Temperature is 98.1, heart rate 61 and ventricular paced, respirations are 14, blood pressure is 134/82, and ox saturation 95% on room air. GENERAL: A well-appearing elderly woman, lying comfortably in bed. CARDIOVASCULAR: She has regular rate and rhythm on ventricular pacing, when the pacer was turned off she was in complete heart block with a heart rate of 34 and was bradycardic. No murmurs. LUNGS: Clear to auscultation. ABDOMEN: Soft, nontender, nondistended. EXTREMITIES: No clubbing, cyanosis, or edema. LABORATORY DATA: Reviewed. AST 75, ALT 57. Normal troponins. TELEMETRY MONITORING: Reveals complete heart block when the pacemaker is turned off. There is still adequate capture. IMPRESSION: 1. Complete heart block. 2. Acute liver injury. 3. Nausea with right upper quadrant pain. 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 5. Hypertension. RECOMMENDATIONS: The patient will remain on temporary venous pacing as she remains in complete heart block. Avoid AV justine blockers. She is currently hemodynamically stable and has no hypotension. If this does occur, we will start IV glucagon and/or inotropic agents. Gastroenterology consultation for elevated LFTs. I will confine my services to Cardiology and she will need a hospitalist for admission. DO JERRICA Garcia/MODL /[id number]
[2019-08-31] MEDS: SERTRALINE HCL 50 MG TAB PO SCH (20:03)
[2019-09-01] VITALS (21 sets, daily range): BP systolic 113–158; BP diastolic 41–97
[2019-09-01 05:29] LABS: BASOPHILS % 0.2 % (0.0-1.0); EOSINOPHILS # (AUTO) 0.1 (0.0-0.4); HEMATOCRIT 37.3 % (34.2-44.1); HEMOGLOBIN 12.4 g/dL (12.0-16.0); LYMPHOCYTES # (AUTO) 1.3 (1.0-3.2); LYMPHOCYTES % 21.8 % (18.0-39.1); MEAN CORPUSCULAR HGB CONC 33.2 g/dL (31-35); MEAN CORPUSCULAR VOLUME 99.2 fL (81-99); MONOCYTES # (AUTO) 0.7 (0.2-0.8); MONOCYTES % 11.3 % (4.4-11.3); NEUTROPHILS % 65.5 % (38.7-80.0); PLATELET COUNT 78 x10e3/uL (140-360); RED BLOOD COUNT 3.76 x10e6/uL (3.6-5.1); RED CELL DISTRIBUTION WIDTH 13.2 % (11.7-14.4)
[2019-09-01 06:03] LABS: ANION GAP 10.9 mmol/L (8-16); BLOOD UREA NITROGEN 18 mg/dL (7-26); BUN/CREATININE RATIO 26 (6-25); CALCIUM 8.4 mg/dL (8.4-10.2); CARBON DIOXIDE 26 mmol/L (22-29); CHLORIDE 107 mmol/L (98-107); EST GLOMERULAR FILTRATION RATE > 60 ML/MIN (60-); GLUCOSE 100 mg/dL (74-118); MAGNESIUM 1.8 MG/DL (1.3-2.1); POTASSIUM 3.9 mmol/L (3.5-5.1); SODIUM 140 mmol/L (136-145)
[2019-09-01 07:35] LABS: PLATELET ESTIMATE MARKEDLY DECREASED; PLATELET MORPHOLOGY COMMENT FEW EDTA CLUMPING
[2019-09-01] MEDS: PANTOPRAZOLE 40 MG 10ML VIAL IV SCH ×2 (08:01→21:12)
[2019-09-01] MEDS: MORPHINE SULFATE 2 MG/ML SYR 1ML IV PRN (08:50)
--- NOTE | 2019-09-01 09:26 | NUR ---
Patient to Valve Assembler via bed for pacemaker placement. Care team aware she had FLD (bites of cream of wheat) this morning for breakfast as the plan was for intervention late afternoon. Pre Op checklist and bedside report to KASEY Phan.
[2019-09-01] MEDS ORDERED: FENTANYL CITRATE/PF 100MCG/2 ML INJ ONE (09:42)
[2019-09-01] MEDS ORDERED: MIDAZOLAM HCL 2 MG/2 ML VIAL ONE (09:42)
[2019-09-01] MEDS ORDERED: BACITRACIN 50,000 UNIT VIAL ONE (09:42)
[2019-09-01] MEDS ORDERED: LIDOCAINE HCL 2% LOCAL 20 ML VIAL ONE (09:43)
[2019-09-01] MEDS ORDERED: SODIUM CHLORIDE 0.9% 500ML 500 ML ONE (09:43)
[2019-09-01] MEDS ORDERED: VANCOMYCIN 1GM/NS 250 ML 250 ML ONE (09:43)
[2019-09-01] MEDS ORDERED: SODIUM CHLORIDE 0.9% 1000ML 2,000 ML ONE (09:43)
--- NOTE | 2019-09-01 11:22 | NUR ---
Patient to room 196 via bed; report from Curtain Inspector RNs, right groin sheath site clean, dry, intact. Left chest with foam dressing; unable to visualize; sling in place. 97.9 degree oral temp, HR 76 paced, 96% on 2L NC, 119/72 RR 15. Family to bedside.
--- NOTE | 2019-09-01 14:00 | NUR ---
ACT 122; right femoral venous sheath removed; pressure held for 15 minutes, no sign of hematoma, no drainage; pressure dressing dry, intact.
--- NOTE | 2019-09-01 14:19 | Consultation ---
DATE OF CONSULTATION: 09/01/2019 EP Consultation REASON FOR CONSULTATION: Complete heart block requiring transvenous pacing. HISTORY OF PRESENT ILLNESS: Ms. Baldwin is an 89-year-old woman with a history of hypertension, hyperlipidemia, osteoporosis, who presents to the hospital after noting a heart rate in the 30s during an endoscopic procedure. The patient was brought to the hospital and admitted for which she had received a transvenous pacemaker that was pacing at 30 beats per minute. She was taking beta-blockers and has been off it for several days now and EP was consulted for consideration of permanent pacemaker implantation. Aside from the beta-stephan, the patient has not had any other medications that would reverse her bradycardia. She currently is in complete heart block and is being paced at 60 beats per minute. REVIEW OF SYSTEMS: She denies any fevers, chills, lightheadedness, dizziness, discharge from eyes, nose, and mouth, swelling of lymph nodes, neck, groin, chest pains, palpitations, shortness of breath, coughing, abdominal pain, nausea, vomiting, dysuria, hematuria, swelling in the joints, joint pain, numbness, tingling, weakness, skin rashes or ulcers, swelling in the legs and the arms, depression or anxiety. PAST MEDICAL HISTORY: As noted above. PAST SURGICAL HISTORY: No cardiac surgery. The patient has had a hysterectomy, cataract surgeries with hiatal hernia surgery. FAMILY HISTORY: Not significant for early cardiac or sudden arrhythmias. SOCIAL HISTORY: The patient does not smoke any cigarettes, drink alcohol, or use any illicit drugs. MEDICATIONS: Please see MAR. ALLERGIES: PENICILLIN. PHYSICAL EXAMINATION: VITAL SIGNS: Temperature is afebrile, heart rate is 60s, being ventricularly paced. Blood pressure 160s/80s, respiratory rate is 12. GENERAL: No acute distress. Alert, awake, oriented x3. HEENT: Normocephalic, atraumatic. Pupils equal, reactive to light. LYMPH: No cervical, submandibular lymphadenopathy appreciated. CVS: S1, S2. Ventricularly paced. RESPIRATORY: Good air entry globally. No wheezing. GI. Abdomen is soft, nontender. : No bladder fullness. No CVA tenderness. MUSCULOSKELETAL: No effusions or erythema noted. NEURO: Moves all extremities spontaneously. No focal deficits. EXTREMITIES: No edema in lower extremities or upper extremities bilaterally. PSYCH: Mood is normal. Answers questions appropriately. LABORATORY DATA: Creatinine 0.7, hemoglobin is 12.4, platelets 78. Transthoracic echocardiogram reportedly with normal left ventricular ejection fraction. ASSESSMENT AND PLAN: Ms. Baldwin is an 89-year-old woman with history as noted above, presents to the hospital after having significant bradycardia noted to be complete heart block requiring transvenous pacing. Has nonreversible bradycardia as evidenced by the fact that she has been off any negative chronotropic medications for the past several days. She currently still is being paced and for this reason, will be indications for dual-chamber pacemaker implantation. I discussed indications, risks, benefits, and alternatives with the patient as well as family and all agreeable. We will proceed with implanting dual-chamber pacemaker today. Thank you very much for the consultation. Please feel free to call if you have any questions. DO CATALINO STRAUSS/EFFIE /[id number]
--- NOTE | 2019-09-01 14:24 | Operative Report ---
DATE OF PROCEDURE: 09/01/2019 SURGEON: BETH DOLAN DO CLINICAL INDICATION: Ms. Baldwin is an 89-year-old woman with history of hypertension and hyperlipidemia, who presents to the hospital noted to have significant sinus bradycardia requiring transvenous pacer. The patient has not reversible bradycardia and will receive dual-chamber pacemaker. PROCEDURE PERFORMED: 1. Implantation of a Saint Eliel dual-chamber pacemaker. 2. Left upper extremity venogram. 3. Moderate sedation. PROCEDURE IN DETAIL: After informed consent was obtained, the patient was prepped and draped in usual manner. Moderate sedation was used for procedure and a total of 1 mg IV Versed and 50 mcg IV fentanyl were given by Hailee Coronel RN. For a total of 60 minutes, the patient was monitored by myself and nurse. Preprocedure time-out and antibiotics were given to the patient. Left upper extremity venogram was performed which demonstrated patent the left axillary vein to the right atrium. 1% lidocaine was given to the left chest region and 2 cm incision was created over the left chest. A pocket was then created over the pectoralis muscle. Hemostasis confirmed. Using modified Seldinger technique, two uncomplicated venous access was obtained and wires were subsequently inserted into the vena cava. Afterwards, a 6-St Helenian peel-away sheath was inserted over one of wires and a right ventricular pacing lead was inserted through the sheath and brought to the right ventricular apex using a pull-out technique. The lead was screwed to myocardium, software testing specialist demonstrated adequate threshold and sheath was peeled. Afterwards, another 6-St Helenian peel-away sheath was inserted over the other wire and a right atrial pacing lead was inserted through the sheath about the right atrial appendage using a preformed J stylet. The lead was screwed myocardium, software testing specialist demonstrated adequate threshold and the sheath was peeled. Both leads were then sutured to muscle using 0 silk. The pocket was then irrigated thoroughly with antibiotic solution. Hemostasis was current. Afterwards, the generator was brought into the field and the leads were plugged into the generator. Generator and leads were then inserted into the pocket and the generator was sutured to the muscle using 0 silk. Then, in a standard 3-layer fashion, the pocket was closed using Vicryl and skin glue was applied. Afterwards, the transvenous pacer was removed from the heart under fluoroscopic guidance without dislodgement of the prior leads. At the conclusion of the procedure, the patient tolerated the procedure well without any immediate complications. Fluoroscopy demonstrated normal cardiac silhouette, no evidence of pericardial effusion, no pneumothorax, no retained products within the pocket. IMPLANTED DEVICES: 1. Saint Leiel model BK8586, serial #[id number]. 2. RA 2088TC/46, serial #[id number]. 3. RV 2088TC/52, serial #[id number]. MEASUREMENTS: RA 2.6 mV, 630 ohms, 0.5 V at 0.4 millisecond. RV impedance 650 ohms, 0.7 V at 0.4 milliseconds. Parameters DDD 60/120. CONCLUSION: 1. Successful placement of a Saint Eliel dual-chamber pacemaker. 2. Successful removal of transvenous pacemaker. 3. No immediate complications. POSTPROCEDURE PLAN: 1. Bed rest for 6 hours. The patient can resume her prior diet. 2. Incision to be kept absolutely dry for two weeks. 3. Left arm to stay in sling overnight. Then can be removed from the sling tomorrow morning and use for daily activities for the next two weeks, use the arm for daily activities, but do not lift it over the shoulder in any direction, do not lift more than 10 pounds of weight. While sleeping at night, put the arm back in the sling. 4. Postprocedure antibiotics and pain medication will be given. 5. One-view chest x-ray and EKG to be performed. 6. Device to be interrogated tomorrow morning. 7. At discharge, the patient can follow up with Dr. Good's clinic in two weeks. DO CATALINO STRAUSS/MODL /[id number]
[2019-09-01] MEDS ORDERED: ACETAMINOPHEN/CODEINE 300MG - 30MG TAB PO PRN (15:15)
--- NOTE | 2019-09-01 15:41 | Diagnostic Imaging Report ---
Chest, portable AP view History: Post pacemaker insertion Comparison: 03/15/2019 IMPRESSION: Left subclavian dual-lead pacemaker is in place. The heart is within normal limits of size. No focal consolidation, pleural effusion, or pneumothorax. Signed by: Johnny Cesar MD on 09/01/2019 3:38 PM
--- NOTE | 2019-09-01 15:45 | NUR ---
Assumed care of pt at 1530 from Karen PARKS. Pt does not appear to be in any s/s of distress and is resting comfortably in bed. No s/s of hematoma to R groin, strong pedal pules.
[2019-09-01] MEDS: SERTRALINE HCL 50 MG TAB PO SCH (21:12)
--- NOTE | 2019-09-01 21:35 | Progress Note ---
DATE: 09/01/2019 Cardiology Progress Note SUBJECTIVE: The patient is status post permanent pacemaker implantation by electrophysiology this morning. She reports her chest is sore at her pacemaker site. She denies any shortness of breath. OBJECTIVE: VITAL SIGNS: Temperature 98.3, pulse 80, respiratory rate 18, blood pressure 151/54, oxygen sat 94% on 2 L nasal cannula. GENERAL: Elderly woman, awake, alert, in no acute distress. LUNGS: Clear to auscultation bilaterally. No wheezes or crackles. CARDIOVASCULAR: Normal rate, regular rhythm. No murmur. Normal S1, S2. ABDOMEN: Soft, nontender. EXTREMITIES: No edema. NEUROLOGIC: Nonfocal exam. CARDIAC MEDICATIONS: None. LABORATORY DATA: WBC 6.1, hemoglobin 12.4, hematocrit 37.3, platelets 78. Sodium 140, potassium 3.9, chloride 107, CO2 of 26, BUN 18, and creatinine is 0.7. Telemetry was personally reviewed and interpreted, revealing paced rhythm. IMPRESSION: 1. Complete heart block status post permanent pacemaker. 2. Acute liver injury. 3. Nausea with right upper quadrant pain. 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 5. Hypertension. RECOMMENDATIONS: The patient is status post permanent pacemaker. This morning device check in a.m. If unremarkable, she can be discharged home from a cardiac standpoint. Blood pressure is reasonable for her age. Would resume atorvastatin once LFTs normalized. If persistently hypertensive, would resume hydrochlorothiazide at this time. Monitor patient on telemetry. No further cardiac evaluation is indicated at this time. Thank you for this consult. We will continue to follow. Jihan Rooney MD ABS/MODL /[id number]
[2019-09-01] MEDS ORDERED: VANCOMYCIN 1GM/NS 250 ML 250 ML IV ONE (21:45)
[2019-09-02] VITALS (8 sets, daily range): BP systolic 132–160; BP diastolic 52–76
[2019-09-02 05:14] LABS: BASOPHILS % 0.2 % (0.0-1.0); EOSINOPHILS % 0.7 % (0.0-6.0); HEMATOCRIT 36.4 % (34.2-44.1); HEMOGLOBIN 12.8 g/dL (12.0-16.0); LYMPHOCYTES # (AUTO) 1.1 (1.0-3.2); LYMPHOCYTES % 18.5 % (18.0-39.1); MEAN CORPUSCULAR HEMOGLOBIN 34.4 pg (28-32); MEAN CORPUSCULAR HGB CONC 35.2 g/dL (31-35); MEAN CORPUSCULAR VOLUME 97.8 fL (81-99); MONOCYTES # (AUTO) 0.6 (0.2-0.8); MONOCYTES % 10.9 % (4.4-11.3); NEUTROPHILS % 69.5 % (38.7-80.0); PLATELET COUNT 94 x10e3/uL (140-360); RED BLOOD COUNT 3.72 x10e6/uL (3.6-5.1); RED CELL DISTRIBUTION WIDTH 12.9 % (11.7-14.4)
[2019-09-02 05:41] LABS: ALANINE AMINOTRANSFERASE 20 IU/L (0-55); ALBUMIN 2.7 g/dL (3.5-5.0); ALKALINE PHOSPHATASE 54 IU/L (40-150); ANION GAP 8.8 mmol/L (8-16); BLOOD UREA NITROGEN 14 mg/dL (7-26); BUN/CREATININE RATIO 24 (6-25); CALCIUM 8.1 mg/dL (8.4-10.2); CARBON DIOXIDE 25 mmol/L (22-29); CHLORIDE 108 mmol/L (98-107); CREATININE, SERUM 0.59 mg/dL (0.57-1.11); EST GLOMERULAR FILTRATION RATE > 60 ML/MIN (60-); GLUCOSE 95 mg/dL (74-118); MAGNESIUM 1.8 MG/DL (1.3-2.1); POTASSIUM 3.8 mmol/L (3.5-5.1); SODIUM 138 mmol/L (136-145)
[2019-09-02] MEDS: PANTOPRAZOLE 40 MG 10ML VIAL IV SCH ×2 (08:07→21:23)
--- NOTE | 2019-09-02 09:14 | Diagnostic Imaging Report ---
EXAMINATION: CHEST SINGLE (PORTABLE) INDICATION: Pacemaker placement, postprocedural COMPARISON: Chest radiograph 03/15/2019 FINDINGS: LINES/TUBES:Interval placement of left chest dual-lead pacer with leads projecting over the right atrium and right ventricle. EKG leads overlie the chest. LUNGS:The lungs are well-inflated. Biapical pleural parenchymal thickening/scarring. There is perihilar fullness and indistinctness of the pulmonary vasculature. There is left basilar opacity silhouetting the left anette diaphragm. PLEURA: Possible small bilateral layering pleural effusions. No pneumothorax. MEDIASTINUM:The cardiomediastinal silhouette appears unchanged in size and shape. Atherosclerotic calcifications of the thoracic aorta. BONES/SOFT TISSUES:No acute osseous injury. ABDOMEN:No free air under the diaphragm. IMPRESSION: Interval left chest dual-lead pacemaker placement. No pneumothorax. New central pulmonary vascular congestion. Possible bilateral layering small pleural effusions. Left basilar opacity, most likely subsegmental atelectasis. Signed by: Liana Mayo MD on 09/02/2019 9:11 AM
--- NOTE | 2019-09-02 11:06 | Progress Note ---
DATE: 09/02/2019 Cardiology Progress Note OBJECTIVE: VITAL SIGNS: Temperature 98.4 degrees, pulse 86, respiratory rate 17, blood pressure 132/64, and oxygen saturation 98% on 2 L nasal cannula. GENERAL: Elderly woman, frail, in no acute distress. Awake and alert. LUNGS: Clear to auscultation bilaterally. No wheezes or crackles. CARDIOVASCULAR: Normal rate. Irregular rhythm. No murmur. Normal S1 and S2. ABDOMEN: Soft and nontender. EXTREMITIES: No edema. NEURO: Nonfocal exam. CARDIAC MEDICATIONS: None. LABORATORY DATA: WBC 5.78, hemoglobin 12.8, hematocrit 36.4, and platelets 94. Sodium 138, potassium 3.8, chloride 108, CO2 25, BUN 14, and creatinine 0.59. Telemetry was personally reviewed and interpreted revealing A-sensed V-paced rhythm. IMPRESSION: 1. Complete heart block, status post permanent pacemaker. 2. Debility. 3. Acute liver injury. 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 5. Hypertension. RECOMMENDATIONS: The patient is status post permanent pacemaker. There was concern for dislodgement of the atrial lead this morning. Management per Electrophysiology, physical therapy evaluation. The patient's blood pressure is for the most part acceptable for age. We will monitor blood pressure. Resume atorvastatin once LFTs normalize. Monitor the patient on telemetry. Thank you for this consult. We will continue to follow. Jihan Rooney MD ABS/MODL /[id number]
--- NOTE | 2019-09-02 16:55 | NUR ---
Pacemaker interrogated this morning. The tech called Dr. Rooney with results. Dr. 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 RN notified Dr. Rooney that results were posted for the chest x ray. Pt worked with physical therapy and recommended home with home health. Interrogation was repeated later in the shift. Dr. Rooney informed RN that pt is cleared by cardiology and must follow up with Dr. Judge in 2 weeks. Florentino Freeman DIGITAL EDITOR called and informed of cardiology's plan. DIGITAL EDITOR gave orders to continue to wean oxygen and prepare for possible discharge. Will continue to monitor.
[2019-09-02] MEDS: SERTRALINE HCL 50 MG TAB PO SCH (21:00)
--- NOTE | 2019-09-02 22:30 | NUR ---
Discharge Summary dictated: #[id number].
--- NOTE | 2019-09-03 04:05 | Discharge Summary ---
CHIEF COMPLAINT: Fatigue and bradycardia. PERTINENT HISTORY AND PHYSICAL FINDINGS: Ms. Baldwin is an 89-year-old female with a history of hypertension, hyperlipidemia, osteoporosis, and depression, who presented to the hospital after noting a heart rate in the 30s during an endoscopic procedure. She was brought to the hospital and admitted with bradycardia, had a transvenous pacemaker that was pacing at 30 beats per minute. She was taking beta-blockers, had been off it for several days. Electrophysiology was consulted for consideration of permanent pacemaker implantation. Permanent pacemaker was placed aside from the beta-stephan. The patient had not had any other medications that would reverse her bradycardia. She was in complete heart block and paced at 60 beats. After the permanent pacemaker was placed by Dr. Judge, there was some concern about dislodgement in the atrial lead. However, the pacemaker was interrogated again today on 09/02/2019, and found to be working fine. PAST MEDICAL HISTORY: As listed above. PAST SURGICAL HISTORY: No cardiac surgery. She has had hysterectomy, cataract surgeries, hiatal hernia surgery. FAMILY HISTORY: No significant early cardiac or sudden arrhythmias. Her sister had cancer. SOCIAL HISTORY: She does not smoke any cigarettes, drink alcohol, or use any illicit drugs. ALLERGIES: PENICILLIN. ADMITTING DIAGNOSES: 1. Bradycardia. 2. Hypertension. 3. Hyperlipidemia. 4. Depression. DISCHARGE DIAGNOSES: 1. Bradycardia, status post permanent pacemaker placement on 09/01/2019. 2. Complete heart block requiring transvenous pacing. 3. Dual chamber pacemaker implantation on 09/01/2019. 4. Transaminitis. 5. Controlled hypertension. 6. Hyperlipidemia. 7. Depression. 8. Ambulatory dysfunction. 9. Upper abdominal pain, resolved. LABORATORY DATA: On the day of discharge; WBC 5.78, hemoglobin 12.8, hematocrit 36.4, and platelets 94,000. Sodium 138, potassium 3.8, chloride 108, CO2 of 25, BUN 14, creatinine 0.59, GFR greater than 60, glucose 95, calcium 8.1, magnesium 1.8, AST 18, ALT 20, alkaline phosphatase 54, total protein 5.3, and albumin 2.7. Chest x-ray today had shown interval left chest dual lead pacemaker placement. No pneumothorax. Possible bilateral layering small pleural effusions. Left basilar opacity, most likely subsegmental atelectasis. On 08/29, a CT of the brain without contrast was done showing no new or acute intracranial abnormality. When compared to the prior CT performed on March 15, 2019, unchanged sequela of prior infectious or inflammatory process in the supratentorial brain, unchanged chronic microvascular ischemic change and generalized volume loss. Abdomen and pelvis CT done on 08/29, showed no acute findings in the abdomen or pelvis. Mild pulmonary interstitial edema and bilateral pleural effusions, right greater than left. CONSULTING PHYSICIANS: Include Dr. Chase with Cardiology and Dr. Joan Judge with Electrophysiology. DISCHARGE DIET: The patient will discharge home on cardiac diet. ACTIVITY LEVEL: As tolerated. Physical therapy indicated that the patient may benefit from home health or physical therapy. Thus, Case Management order was entered for this. Continue with outpatient Gastroenterology workup if desired. Follow up with Dr. Judge in 2 weeks. Follow up with PCP in 1 to 2 weeks. Dictated by Regino Freeman NP Florentino Mg MD HWP/MODL /[id number]
== END 2019-09-02 22:40 | disposition home health service (06) | DRG 242 ==
LOC: ER 09:02 → ERHOLD 10:12 → UNDOADMIN 10:12 → CATH LAB 14:16 → PACU V 15:32 → ICU 15:56
PROVIDERS: ADMIT Internal Medicine; ATTEND Internal Medicine
PROC: 5A1223Z Performance of Cardiac Pacing, Continuous (ICD-10-PCS; 2019-08-29)
PROC: 0JH606Z Insertion of Pacemaker, Dual Chamber into Chest Subcutaneous Tissue and Fascia, Open Approach (ICD-10-PCS; principal; 2019-09-01)
PROC: 02H63JZ Insertion of Pacemaker Lead into Right Atrium, Percutaneous Approach (ICD-10-PCS; 2019-09-01)
PROC: 02HK3JZ Insertion of Pacemaker Lead into Right Ventricle, Percutaneous Approach (ICD-10-PCS; 2019-09-01)
DX: I44.2 Atrioventricular block, complete (principal); K85.10 Biliary acute pancreatitis without necrosis or infection; T44.7X1A Poisoning by beta-adrenoreceptor antagonists, accidental (unintentional), initial encounter; I10 Essential (primary) hypertension; R00.1 Bradycardia, unspecified; E78.5 Hyperlipidemia, unspecified; M81.0 Age-related osteoporosis without current pathological fracture; K44.9 Diaphragmatic hernia without obstruction or gangrene; Z85.9 Personal history of malignant neoplasm, unspecified; Z95.0 Presence of cardiac pacemaker; Z88.0 Allergy status to penicillin; F32.9 Major depressive disorder, single episode, unspecified; R74.0 Nonspecific elevation of levels of transaminase and lactic acid dehydrogenase [LDH]
CPT/HCPCS: 33208; 33210; 36415; 70450; 71045; 74176; 80048; 80053; 80076; 82550; 82553; 83036; 83690; 83735; 84443; 84484; 85025; 85610; 85730; 93005; 93306; 99152; 99153; 99284; C1769; C1785; C1898; J0360; J2001; J2250; J2270; J3010; J3370; J7030; J7040

== ENCOUNTER → 2019-08-29 | Outpatient (CLI) | payer MEDICARE, OTHER ==
[~2019-08-29] MED LIST: ACETAMINOPHEN325 M1 PO; ALENDRONATE SOD70 MG PO; ATORVASTATIN CA20 MG PO; ESIDRIX25 MG PO; METOPROLOL-HCT1 EAC1 PO; Multivitamins/Minerals PO; OS-CAL 500+D T1 EACH PO; ZOLOFT50 MG PO
[2019-08-29 08:50] LABS: BASOPHILS % 0.2 % (0.0-1.0); EOSINOPHILS % 0.4 % (0.0-6.0); HEMATOCRIT 38.8 % (34.2-44.1); LYMPHOCYTES # (AUTO) 1.5 (1.0-3.2); LYMPHOCYTES % 29.5 % (18.0-39.1); MEAN CORPUSCULAR HEMOGLOBIN 33.2 pg (28-32); MEAN CORPUSCULAR HGB CONC 33.5 g/dL (31-35); MEAN CORPUSCULAR VOLUME 99.2 fL (81-99); MONOCYTES # (AUTO) 0.5 (0.2-0.8); MONOCYTES % 9.8 % (4.4-11.3); NEUTROPHILS % 59.9 % (38.7-80.0); PLATELET COUNT 101 x10e3/uL (140-360); RED BLOOD COUNT 3.91 x10e6/uL (3.6-5.1); RED CELL DISTRIBUTION WIDTH 13.6 % (11.7-14.4)
== END ==
LOC: RAD 05:00 → OR 07:40 → EDSTATUS 11:30
PROVIDERS: ATTEND Internal Medicine Gastroenterology
DX: Z01.818 Encounter for other preprocedural examination (principal); R13.10 Dysphagia, unspecified; R10.12 Left upper quadrant pain; Z53.8 Procedure and treatment not carried out for other reasons
CPT/HCPCS: 36415; 85025; 93005; C1766